=== PATIENT | female | born 1945 | race Caucasian/White ===

== ENCOUNTER → 2016-12-28 | Outpatient (CLI) | payer MEDICARE ==
--- NOTE | 2016-12-28 13:51 | XR ---
EXAMINATION TYPE: XR chest 2V DATE OF EXAM: 12/28/2016 1:34 PM HISTORY: Crackles. REFERENCE: Previous study dated 12/05/2010. FINDINGS: There is a mild dextroscoliosis. The lungs are clear. Pleural spaces are clear. Heart size is normal. IMPRESSION: NO ACUTE INTRATHORACIC ABNORMALITY.
--- NOTE | 2016-12-29 12:47 | MM ---
Reason for exam: screening (asymptomatic). Last mammogram was performed 1 year and 10 months ago. History: Patient is postmenopausal and has history of other cancer at age 53. Took hormonal contraceptives for 2 years beginning at age 22. Took estrogen for 23 years beginning at age 35. Physical Findings: A clinical breast exam by your physician is recommended on an annual basis and results should be correlated with mammographic findings. MG Screening Mammo w CAD Bilateral CC and MLO view(s) were taken. Prior study comparison: March 03, 2015, bilateral MG screening mammo w CAD. July 17, 2013, bilateral digital screening mammo w/CAD. The breast tissue is heterogeneously dense. This may lower the sensitivity of mammography. No significant changes when compared with prior studies. ASSESSMENT: Negative, BI-RAD 1 RECOMMENDATION: Routine screening mammogram of both breasts in 1 year.
== END | disposition home or self-care (01) ==
LOC: RADMAMWWP 12:58
PROVIDERS: ATTEND Family Medicine
DX: Z12.31 Encounter for screening mammogram for malignant neoplasm of breast (principal); R09.89 Other specified symptoms and signs involving the circulatory and respiratory systems
CPT/HCPCS: 71020; G0202

== ENCOUNTER → 2018-03-19 | Outpatient (CLI) | payer MEDICARE ==
[2018-03-19 11:54] LABS: ALT 26 U/L (9-52); AST 22 U/L (14-36); Alkaline Phosphatase 85 U/L (38-126); Anion Gap 12 mmol/L; Blood Urea Nitrogen 18 mg/dL (7-17); Calcium 9.5 mg/dL (8.4-10.2); Carbon Dioxide 28 mmol/L (22-30); Chloride 105 mmol/L (98-107); Cholesterol 106 mg/dL (<200); Glucose 96 mg/dL (74-99); HDL Cholesterol 54 mg/dL (40-60); LDL Cholesterol,Calculated 39 mg/dL (0-99); Sodium 145 mmol/L (137-145); Total Bilirubin 0.5 mg/dL (0.2-1.3); Total Protein 6.6 g/dL (6.3-8.2); Triglycerides 63 mg/dL (<150)
== END | disposition home or self-care (01) ==
LOC: LABWHC1 11:05
PROVIDERS: ATTEND Internal Medicine Cardiovascular Disease
DX: E78.5 Hyperlipidemia, unspecified (principal); I10 Essential (primary) hypertension
CPT/HCPCS: 36415; 80053; 80061

== ENCOUNTER → 2018-08-13 | Outpatient (CLI) | payer MEDICARE ==
--- NOTE | 2018-08-13 18:11 | BD ---
EXAMINATION TYPE: Axial Bone Density DATE OF EXAM: 08/13/2018 COMPARISON: 07.08.2015 CLINICAL HISTORY: 73 YR OLD FEMALE....ICD-10 CODE: M81.0 OSTEOPOROSIS Height: 61.5 Weight: 123 FRAX RISK QUESTIONS: RISK FACTORS HISTORY OF: Active: YES Postmenopausal woman: TOTAL HYSTERECTOMY AT 47 YRS OLD Take estrogen and/or progesterone medications: IN PAST FOR 5 YRS MEDICATIONS: Osteoporosis Medications: YES, FOSAMAX FOR ABOUT 8 YRS Additional Medications: BP MEDS, HX OF CHEMO, CALCIUM AND VIT D, STATINS FOR CHOLESTEROL, Additional History: KIDNEY CA, HYPERTENSION, EXAM MEASUREMENTS: Bone mineral densitometry was performed using the [employer] System. Bone mineral density as measured about the Lumbar spine is: ----- L1-L4(G/cm2): 1.311 T Score Values are as follows: ----- L1: 1.1 ----- L2: 0.5 ----- L3: 1.3 ----- L4: 1.2 ----- L1-L4: 1.1 Bone mineral density has: Increased 17.0% since study of: 07.08.2015 Bone mineral density about the R hip (g/cm2): 0.774 Bone mineral density about the L hip (g/cm2): 0.753 T Score values are as follows: -----R Neck: -2.5 -----L Neck: -2.9 -----R Total: -1.9 -----L Total: -2.0 Bone mineral density has: Decreased -3.2% since study of: 07.08.2015 FRAX%s: THERE IS A 17.6% CHANCE FOR A MAJOR OSTEOPOROTIC FX AND 5.9% FOR HIP FX....PROBABILITY OF FX IN 10 YRS TIME IMPRESSION: Osteoporosis (T Score less than -2.5). There is increased fracture risk and therapy is usually indicated based on age. Re-Screen 1-2 years. NOTE: T-SCORE=SD OF THE YOUNG ADULT MEAN.
--- NOTE | 2018-08-14 14:38 | MM ---
Reason for exam: screening (asymptomatic). Last mammogram was performed 1 year and 7 months ago. History: Patient is postmenopausal and has history of other cancer at age 53. Took hormonal contraceptives for 2 years beginning at age 22. Took estrogen for 23 years beginning at age 35. Physical Findings: A clinical breast exam by your physician is recommended on an annual basis and results should be correlated with mammographic findings. MG Screening Mammo w CAD Bilateral CC and MLO view(s) were taken. Prior study comparison: December 28, 2016, bilateral MG screening mammo w CAD. March 03, 2015, bilateral MG screening mammo w CAD. The breast tissue is heterogeneously dense. This may lower the sensitivity of mammography. There is chronic nodularity in the right breast. No significant changes when compared with prior studies. ASSESSMENT: Negative, BI-RAD 1 RECOMMENDATION: Routine screening mammogram of both breasts in 1 year.
== END | disposition home or self-care (01) ==
LOC: RADBDWWP 15:25
PROVIDERS: ATTEND Family Medicine
DX: Z12.31 Encounter for screening mammogram for malignant neoplasm of breast (principal); M81.0 Age-related osteoporosis without current pathological fracture
CPT/HCPCS: 77067; 77080

== ENCOUNTER → 2019-11-25 | Outpatient (CLI) | payer MEDICARE ==
--- NOTE | 2019-11-27 13:49 | MM ---
Reason for exam: screening (asymptomatic). Last mammogram was performed 1 year and 3 months ago. History: Patient is postmenopausal and has history of other cancer at age 53. Took hormonal contraceptives for 2 years beginning at age 22. Took estrogen for 23 years beginning at age 35. Physical Findings: A clinical breast exam by your physician is recommended on an annual basis and results should be correlated with mammographic findings. MG Screening Mammo w CAD Bilateral CC and MLO view(s) were taken. Prior study comparison: August 13, 2018, bilateral MG screening mammo w CAD. December 28, 2016, bilateral MG screening mammo w CAD. The breast tissue is extremely dense which could obscure a lesion on mammography. No significant changes when compared with prior studies. ASSESSMENT: Benign, BI-RAD 2 RECOMMENDATION: Routine screening mammogram of both breasts in 1 year.
== END | disposition home or self-care (01) ==
LOC: RADMAMWWP 15:25
PROVIDERS: ATTEND Family Medicine
DX: Z12.31 Encounter for screening mammogram for malignant neoplasm of breast (principal)
CPT/HCPCS: 77067

== ENCOUNTER → 2020-07-27 | Outpatient (CLI) | payer MEDICARE ==
[~2020-07-27] MED LIST: DENOSUMAB 60 MG/ML 1 ML SYRINGE SQ NR
[2020-07-27 14:56] VITALS: BP 137/76; PULSE 76; RESP 16; TEMP 97.8
== END | disposition home or self-care (01) ==
LOC: PROCWHC3 14:19
PROVIDERS: ATTEND Family Medicine
DX: M81.0 Age-related osteoporosis without current pathological fracture (principal)
CPT/HCPCS: 96372; J0897

== ENCOUNTER → 2021-02-22 | Outpatient (CLI) | payer MEDICARE ==
[2021-02-22 10:57] VITALS: BP 178/90; PULSE 80; RESP 16; TEMP 97.8
== END ==
LOC: PROCWHC3 10:41
PROVIDERS: ATTEND Family Medicine
DX: M81.0 Age-related osteoporosis without current pathological fracture (principal)
CPT/HCPCS: 96372; J0897

== ENCOUNTER → 2021-08-25 | Outpatient (CLI) | payer MEDICARE ==
[2021-08-25 13:13] VITALS: BP 156/87; PULSE 85; RESP 16; TEMP 98.3
== END ==
LOC: PROCWHC3 12:45
PROVIDERS: ATTEND Family Medicine
DX: M81.0 Age-related osteoporosis without current pathological fracture (principal)
CPT/HCPCS: 96372; J0897

== ENCOUNTER → 2022-05-05 | Outpatient (CLI) | payer MEDICARE ==
[2022-05-05 10:09] VITALS: BP 180/91; PULSE 90; RESP 16; TEMP 98
== END ==
LOC: PROCWHC3 10:01
PROVIDERS: ATTEND Family Medicine
DX: M81.0 Age-related osteoporosis without current pathological fracture (principal)
CPT/HCPCS: 96372; J0897

== ENCOUNTER → 2022-05-16 | Outpatient (CLI) | payer MEDICARE ==
--- NOTE | 2022-05-18 08:26 | MM ---
Reason for Exam: Screening (asymptomatic). Last mammogram was performed 2 year(s) and 6 month(s) ago. Patient History: Menarche at age 14. First Full-Term at age 21. Hysterectomy at age 34. Postmenopausal. Other cancer, age 53. Estrogen for 23 years from age 35 until age 58. Hormonal Contraceptives for 2 years from age 22 until age 23. Risk Values: Valorie 5 year model risk: 1.3%. NCI Lifetime model risk: 3.0%. Prior Study Comparison: 12/28/2016 Bilateral Screening Mammogram, [facility]. 08/13/2018 Bilateral Screening Mammogram, [facility]. 11/25/2019 Bilateral Screening Mammogram, [facility]. Tissue Density: The breast tissue is extremely dense which could obscure a lesion on mammography. Findings: Analyzed By CAD. No suspicious groups of microcalcifications, spiculated or lobular masses, architectural distortion or other secondary signs of malignancy are mammographically apparent. Overall Assessment: Benign, BI-RAD 2 Management: Screening Mammogram of both breasts in 1 year. A negative mammogram report should not preclude additional follow up of suspicious palpable abnormalities. Patient should continue monthly self breast exam. A clinical breast exam by your physician is recommended on an annual basis and results should be correlated with mammographic findings. Electronically signed and approved by: Jamison Zepeda D.O. Radiologis
--- NOTE | 2022-05-22 10:03 | BD ---
EXAMINATION TYPE: Axial Bone Density DATE OF EXAM: 05/16/2022 COMPARISON: DEXA bone scan 2018 CLINICAL HISTORY: 76 years year old Female. ICD-10 CODE: M81.0 Age related osteoporosis w/o current Height: 5 FT 1 1/2 IN Weight: 121 FRAX RISK QUESTIONS: Alcohol (3 or more units per day): NO Family History (Parent hip fracture): NO Glucocorticoids (More than 3mos): NO (Ex: prednisone, prednisolone, methylprednisolone, dexamethasone, and hydrocortisone). History of Fracture in Adulthood: NO Secondary Osteoporosis: 1. Type 1 Diabetes: NO 2. Hyperthyroidism: NO 3. Menopause before 45: NO 4. Malnutrition: NO 5. Chronic liver disease: NO Rheumatoid Arthritis: YES Current Tobacco Use: NO RISK FACTORS HISTORY OF: Surgery to Spine/Hip(right/left)/Wrist (right/left): NO Family History of Osteoporosis: NO Active: YES Diet low in dairy products/other sources of calcium: NO Postmenopausal woman: YES Take estrogen and/or progesterone medications: NONE NOW Lost more than 2 inches in height since high school: YES Frequent falls: NO Poor Health: GOOD Hyperparathyroidism: NO Adrenal Insufficiency: KIDNEY CANCER REMOVAL WITH CHEMO MEDICATIONS: Osteoporosis Medications: YES Which medication: PROLIA How Lon MONTHS FOSAMAX FOR YEARS BEFORE THIS Additional Medications: LISINOPRIL,AMLODIPINE, SOVA STA LEIGH, CALCIUM, PROLIA, Additional History: EXAM MEASUREMENTS: Bone mineral densitometry was performed using the [employer] System. Bone mineral density as measured about the Lumbar spine is: ----- L1-L4(G/cm2): 1.269 T Score Values are as follows: ----- L1: -1.7 ----- L2: 1.1 ----- L3: 0.8 ----- L4: 2.5 ----- L1-L4: 0.7 Bone mineral density has: INCREASED 4.0 % since study of: 2018 Bone mineral density about the R hip (g/cm2): 0.711 Bone mineral density about the L hip (g/cm2): 0.656 T Score values are as follows: -----R Neck: -2.3 -----L Neck: -2.8 -----R Total: -1.9 -----L Total: -2.1 Bone mineral density has: DECREASED -1.6 % since study of: 2018 FRAX%s: The graph provided illustrates a 17.8 % chance for a major osteoporotic fx and a 6.4 % chance for the hips probability for fx in 10 years time. IMPRESSION: Osteoporosis (T Score less than -2.5) is redemonstrated. There is increased fracture risk and therapy is usually indicated based on age. Re-Screen 1-2 years. NOTE: T-SCORE=SD OF THE YOUNG ADULT MEAN.
== END | disposition home or self-care (01) ==
LOC: RADMAMWWP 14:09
PROVIDERS: ATTEND Family Medicine
DX: Z12.31 Encounter for screening mammogram for malignant neoplasm of breast (principal); M81.0 Age-related osteoporosis without current pathological fracture; M85.89 Other specified disorders of bone density and structure, multiple sites; Z78.0 Asymptomatic menopausal state
CPT/HCPCS: 77063; 77067; 77080

== ENCOUNTER → 2022-08-25 | Outpatient (CLI) | payer MEDICARE ==
[2022-08-25 11:52] LABS: African American GFR (CKD) >90 (>60 ml/min/1.73 sqM); Blood Urea Nitrogen 20 mg/dL (7-17); Non-African American GFR(CKD) 90 (>60 ml/min/1.73 sqM)
--- NOTE | 2022-08-25 13:20 | CT ---
EXAMINATION TYPE: CT abdomen pelvis w con DATE OF EXAM: 08/25/2022 COMPARISON: None HISTORY: follow up for kidney cancer x15 years ago. pt had right kidney removed. CT DLP: 961 mGycm Automated exposure control for dose reduction was used. TECHNIQUE: Helical acquisition of images was performed from the lung bases through the pelvis. CONTRAST: Performed with Oral Contrast and with IV Contrast, patient injected with 70mL mL of Isovue 300. FINDINGS: The visualized lung bases are clear. There are 2 small low-density lesions within the liver which are too small to characterize. Statistic ally these most likely represent hepatic cysts or hemangiomas. The gallbladder is normal and there is no pericholecystic fluid, wall thickening, distention or galls tones. There is no biliary ductal dilatation. The pancreas, spleen and adrenal glands are normal. There is surgical absence of the right kidney consistent with the provided history of right nephrecto my for renal cell carcinoma. There is no left renal mass and no left-sided hydronephrosis. There is a 12 mm nonobstructing calculu s in the mid to lower pole of left kidney. Caliber the abdominal aorta is normal and there is no retroperitoneal adenopathy or hemorrhage. The bowel loops are normal in caliber and there is no dilatation or obstruction. No inflammatory ellington ges are identified in the bowel wall or mesentery. There is no free intraperitoneal air or fluid. There is no pelvic mass, free fluid, abscess or adenopathy. There are no focal lytic osseous abnormalities. IMPRESSION: 1. 2 small hypodensities within the liver too small to characterize with certainty but statistically most likely represent simple hepatic cysts or hemangiomas. 2. Surgical absence of the right kidney consistent with the history of right nephrectomy for renal ce ll carcinoma. 3. 12 mm nonobstructing calculus at the left kidney
== END | disposition home or self-care (01) ==
LOC: RADCTMAIN 10:46
PROVIDERS: ATTEND Urology
DX: C67.2 Malignant neoplasm of lateral wall of bladder (principal); N20.0 Calculus of kidney; Z90.5 Acquired absence of kidney
CPT/HCPCS: 82565; 84520; 74177; 36415; Q9967

== ENCOUNTER → 2022-11-07 | Outpatient (CLI) | payer MEDICARE ==
[2022-11-07 11:00] VITALS: BP 174/101; PULSE 90; RESP 16; TEMP 97.6
== END ==
LOC: PROCWHC3 10:49
PROVIDERS: ATTEND Family Medicine
DX: M81.0 Age-related osteoporosis without current pathological fracture (principal)
CPT/HCPCS: 96372; J0897

== ENCOUNTER → 2023-05-11 | Outpatient (CLI) | payer MEDICARE ==
[2023-05-11 11:08] VITALS: BP 150/88; PULSE 74; RESP 16; TEMP 97.9
== END ==
LOC: PROCWHC3 10:35
PROVIDERS: ATTEND Family Medicine
DX: M85.80 Other specified disorders of bone density and structure, unspecified site (principal)
CPT/HCPCS: 96372; J0897

== ENCOUNTER → 2023-11-23 | Outpatient (CLI) | payer MEDICARE ==
[2023-11-23 12:41] VITALS: BP 138/83; PULSE 73; RESP 16; TEMP 97.7
== END ==
LOC: PROCWHC3 11:58
PROVIDERS: ATTEND Family Medicine
DX: M85.80 Other specified disorders of bone density and structure, unspecified site (principal)
CPT/HCPCS: 96372; J0897

== ENCOUNTER → 2024-05-30 | Outpatient (CLI) | payer MEDICARE ==
[2024-05-30 13:02] VITALS: BP 124/80; PULSE 92; RESP 16; TEMP 97.8
[2024-05-30] MEDS: DENOSUMAB 60 MG/ML 1 ML SYRINGE SQ NR (13:02)
== END ==
LOC: PROCWHC3 12:53
PROVIDERS: ATTEND Family Medicine
DX: M81.0 Age-related osteoporosis without current pathological fracture (principal)
CPT/HCPCS: 96372; J0897

== ENCOUNTER → 2024-10-31 | Outpatient (CLI) | payer MEDICARE ==
[~2024-10-31] MED LIST changes: -DENOSUMAB 60 MG/ML 1 ML SYRINGE SQ NR; +DENOSUMAB 60 MG/ML 1 ML SYRINGE SQ ONE
== END ==
LOC: PROCWHC3 13:01
PROVIDERS: ATTEND Family Medicine
DX: M81.0 Age-related osteoporosis without current pathological fracture (principal); Z53.9 Procedure and treatment not carried out, unspecified reason
CPT/HCPCS: 77080

== ENCOUNTER → 2024-10-31 | Outpatient (CLI) | payer MEDICARE ==
--- NOTE | 2024-10-31 14:27 | BD ---
EXAMINATION TYPE: Axial Bone Density DATE OF EXAM: 10/31/2024 CLINICAL HISTORY: 79 years old Female. ICD-10 CODE: M81.0 OSTEOPOROSIS , Additional History: Height: 61 Weight: 112.8 FRAX RISK QUESTIONS: Alcohol (3 or more units per day): no Family History (Parent hip fracture): no Glucocorticoids (More than 3mos): no (Ex: prednisone, prednisolone, methylprednisolone, dexamethasone, and hydrocortisone). History of Fracture in Adulthood: no Secondary Osteoporosis: 1. Type 1 Diabetes: no 2. Hyperthyroidism: no 3. Menopause before 45: no 4. Malnutrition: no 5. Chronic liver disease: no Rheumatoid Arthritis: no Current Tobacco Use: no RISK FACTORS HISTORY OF: Surgery to Spine/Hip(right/left)/Wrist (right/left): no MEDICATIONS: Osteoporosis Medications: prolia How Long: pt unsure EXAM MEASUREMENTS: Bone mineral densitometry was performed using the [employer] System. Bone mineral density as measured about the Lumbar spine is: ----- L1-L4(G/cm2): 1.466 T Score Values are as follows: ----- L1: 2.5 ----- L2: 0.8 ----- L3: 3.8 ----- L4: 2.0 ----- L1-L4: 2.4 Z Score Values are as follows: ----- L1: 4.7 ----- L2: 3.1 ----- L3: 6.0 ----- L4: 4.3 ----- L1-L4: 4.6 Bone mineral density has: increased 15.5 % since study of: 05.16.2022 Bone mineral density about the R hip (g/cm2): 0.789 Bone mineral density about the L hip (g/cm2): 0.749 T Score values are as follows: -----R Neck: -2.3 -----L Neck: -2.6 -----R Total: -1.7 -----L Total: -2.0 Z Score values are as follows: -----R Neck: 0.1 -----L Neck: -0.3 -----R Total: 0.4 -----L Total: 0.1 Bone mineral density has: increased 2.4 % since study of: 7.5.2021 FRAX%s: The graph provided illustrates a 17.1% chance for a major osteoporotic fx and a 6.2% chance f or the hips probability for fx in 10 years time. IMPRESSION: Osteopenia (T Score between -2.5 and -1). There is slightly increased risk of fracture and the patient may be considered for treatment. Re-Screen 2-5 years. NOTE: T-SCORE=SD OF THE YOUNG ADULT MEAN. [facility], , 10/31/2024 2:24 PM
== END | disposition home or self-care (01) ==
LOC: RADBDWWP 13:15
PROVIDERS: ATTEND Family Medicine
DX: M81.0 Age-related osteoporosis without current pathological fracture (principal); M85.89 Other specified disorders of bone density and structure, multiple sites
CPT/HCPCS: 77080

== ENCOUNTER → 2025-01-02 | Outpatient (CLI) | payer MEDICARE ==
[2025-01-02 10:43] VITALS: BP 157/78; PULSE 73; RESP 16; TEMP 97.9
[2025-01-02] MEDS: DENOSUMAB 60 MG/ML 1 ML SYRINGE SQ NR (10:43)
== END ==
LOC: PROCWHC3 10:31
PROVIDERS: ATTEND Family Medicine
DX: M81.0 Age-related osteoporosis without current pathological fracture (principal)
CPT/HCPCS: 96372; J0897

== ENCOUNTER → 2025-03-06 | Outpatient (CLI) | payer MEDICARE ==
--- NOTE | 2025-03-06 14:54 | XR ---
EXAMINATION TYPE: XR lumbar spine 2 or 3V DATE OF EXAM: 03/06/2025 2:07 PM COMPARISON: None. CLINICAL INDICATION: Female, 79 years old with history of M54.50 LOW BACK PAIN, UNSPEC R09.89, pain TECHNIQUE: 3 view(s) obtained. FINDINGS: Scoliosis is present. There are 5 lumbar-type vertebral bodies. Pedicles are intact. There is a grade 1 spondylolisthesis of L4 anteriorly on L5. Narrowing of the L5-S1 disc height is present. There [place] ears to be narrowing of the L2-L3 4 disc space. Thoracolumbar junction degenerative disc changes are present. There is ar 1.2 cm left abdominal calcification. Correlate for renal stone. This appears somewhat lat eral for ureteral stone. IMPRESSION: 1. Scoliosis with degenerative disc changes lumbar spine. 2. Grade 1 spondylolisthesis of L4 anterior to L5. 3. Left abdominal calcification [facility], Workstation: [facility], 03/06/2025 2:51 PM
--- NOTE | 2025-03-06 14:54 | XR ---
EXAMINATION TYPE: XR chest 2V DATE OF EXAM: 03/06/2025 2:06 PM COMPARISON: 12/28/2016 CLINICAL INDICATION: Female, 79 years old with history of M54.50 LOW BACK PAIN, UNSPEC R09.89, abnorm al auscultation, lung crackles TECHNIQUE: XR chest 2V view(s) obtained. FINDINGS: The heart size is normal. The pulmonary vasculature is normal. The lungs are clear. IMPRESSION: 1. No acute pulmonary process. [facility], Workstation: [facility], 03/06/2025 2:52 PM
== END | disposition home or self-care (01) ==
LOC: RADXRMAIN 13:47
PROVIDERS: ATTEND Family Medicine
DX: M51.360 Other intervertebral disc degeneration, lumbar region with discogenic back pain only (principal); R09.89 Other specified symptoms and signs involving the circulatory and respiratory systems; M43.16 Spondylolisthesis, lumbar region
CPT/HCPCS: 71046; 72100